=== PATIENT | male | born 1935 | race Caucasian/White ===

== ENCOUNTER 2021-01-28 08:51 | Outpatient (CLI) | payer OTHER | END 2021-01-28 08:57 | disposition home or self-care (01) | LOC: TOM 08:51 | DX: K43.2 Incisional hernia without obstruction or gangrene (principal); R19.5 Other fecal abnormalities; J44.9 Chronic obstructive pulmonary disease, unspecified; Z79.01 Long term (current) use of anticoagulants; I25.10 Atherosclerotic heart disease of native coronary artery without angina pectoris; K46.9 Unspecified abdominal hernia without obstruction or gangrene ==